=== PATIENT | male | born 1975 | race Caucasian/White ===

== ENCOUNTER 2018-02-15 18:33 | Emergency (ER) | payer OTHER ==
[~2018-02-15] VITALS: Ht 182.9 cm; Wt 129.2 kg
[2018-02-15 20:20] VITALS: BP 157/101
== END 2018-02-15 20:21 | disposition home or self-care (01) ==
LOC: EME 18:33
DX: S61.012A Laceration without foreign body of left thumb without damage to nail, initial encounter (principal); W26.0XXA Contact with knife, initial encounter; Y93.G3 Activity, cooking and baking; Z23 Encounter for immunization; Z88.1 Allergy status to other antibiotic agents
CPT/HCPCS: 99281; 99283; S0020